=== PATIENT | male | born 1970 | race Caucasian/White ===

== ENCOUNTER 2021-11-22 04:18 | Day surgery (SDC) | payer OTHER ==
[2021-11-21 11:54] VITALS: BMI 27.7
[2021-11-22] MEDS ORDERED: ROPIVACAINE HCL 0.5% 30ML VIAL ONE (07:39)
[2021-11-22] MEDS ORDERED: DEXAMETHASONE SOD PHOSPHATE 10 MG/1 ML VIAL ONE (07:39)
[2021-11-22] MEDS ORDERED: MIDAZOLAM HCL 2 MG/2 ML SINGLE DOSE VIAL ONE (07:40)
[2021-11-22] MEDS ORDERED: DEXAMETHASONE SOD PHOSPHATE 4 MG/1 ML VIAL ONE (07:50)
[2021-11-22] MEDS ORDERED: ceFAZolin SODIUM 1 GM VIAL ONE (07:50)
[2021-11-22] MEDS ORDERED: LIDOCAINE HCL/PF (2%) 40 MG/2 ML VIAL ONE (07:50)
[2021-11-22] MEDS ORDERED: ONDANSETRON 4 MG/2 ML VIAL ONE (07:50)
[2021-11-22] MEDS ORDERED: PROPOFOL 40 ML ONE ×2 (07:51→08:43)
[2021-11-22] MEDS ORDERED: SUCCINYLCHOLINE CHLORIDE 200 MG/10 ML SYRINGE ONE (07:52)
[2021-11-22] MEDS ORDERED: ceFAZolin SODIUM 1 GM VIAL IVPB ONE (08:28)
[2021-11-22] MEDS ORDERED: oxyCODONE HCL 5 MG TABLET PO PRN (09:24)
[2021-11-22] MEDS ORDERED: ONDANSETRON 4 MG/2 ML VIAL IVPUSH PRN (09:24)
[2021-11-22] MEDS ORDERED: LACTATED RINGERS SOLUTION 1,000 ML IV SCH (09:30)
[2021-11-22] MEDS ORDERED: PROPOFOL 20 ML ONE ×2 (09:34→10:32)
[2021-11-22 12:12] VITALS: RESP 20; TEMP 97.1
[2021-11-22 12:27] VITALS: BP 107/85; PULSE 67
== END 2021-11-22 11:48 | disposition home or self-care (01) ==
LOC: JASU-SURG 04:18
PROVIDERS: ATTEND Orthopaedic Surgery
PROC: 0LB14ZZ Excision of Right Shoulder Tendon, Percutaneous Endoscopic Approach (ICD-10-PCS; principal; 2021-11-22 08:00)
PROC: 0RQJ4ZZ Repair Right Shoulder Joint, Percutaneous Endoscopic Approach (ICD-10-PCS; 2021-11-22 08:00)
DX: S43.431A Superior glenoid labrum lesion of right shoulder, initial encounter (principal); X58.XXXA Exposure to other specified factors, initial encounter; Y93.9 Activity, unspecified; Y92.9 Unspecified place or not applicable; Y99.9 Unspecified external cause status; M75.111 Incomplete rotator cuff tear or rupture of right shoulder, not specified as traumatic
CPT/HCPCS: 94760; J1100